=== PATIENT | female | born 1995 | race African-American/Black ===

== ENCOUNTER 2017-03-01 11:37 | Emergency (ER) | payer BC ==
[~2017-03-01] VITALS: Ht 154.9 cm; Wt 57.8 kg
[2017-03-01 11:44] VITALS: TEMP 36.7; Ht 154.9 cm; Wt 57.8 kg
[2017-03-01] MEDS ORDERED: DiphenhydrAMINE HCL 50 MG/ML VIAL IV STA (12:14)
[2017-03-01] MEDS ORDERED: SODIUM CHLORIDE 0.9% 1000ML 1,000 ML IV STA (12:14)
[2017-03-01] MEDS ORDERED: PROCHLORPERAZINE 5 MG/ML 2 ML VIAL IV STA (12:14)
[2017-03-01] MEDS ORDERED: KETOROLAC TROMETHAMINE 30 MG/ML VIAL IV STA (12:14)
[2017-03-01 12:49] LABS: BASO % 0.3 %; BASO ABS # 0.02 K/uL (0-0.2); COMPLETE YES; EOS % 1.4 %; HEMATOCRIT 41.2 % (37-47); IG% 0.2 %; LYMPH % 34.7 %; LYMPH ABS # 2.31 K/uL (1.2-3.4); MEAN CELL VOLUME 90.7 fL (80-100); MEAN PLATELET VOLUME 11.3 fL (7.4-10.4); MONO % 5.7 %; NEUT % 57.7 %; PLATELET COUNT 219 K/uL (130-400); RED BLOOD COUNT 4.54 M/uL (4.2-5.4); WHITE BLOOD COUNT 6.66 K/uL (4.8-10.8)
[2017-03-01 13:05] LABS: BUN/CREATININE RATIO 8.5 (10-20); CALCIUM 9.2 mg/dl (8.5-10.1); CREATININE 0.85 mg/dl (0.60-1.20); POTASSIUM 3.2 mmol/L (3.5-5.1)
--- NOTE | 2017-03-01 13:05 | EMERGENCY ROOM VISIT NOTE ---
History Report prepared by Karen: Pritesh Garner Under the Supervision of: Dr. Gerardo Disla M.D. First contact with patient: 12:10 Chief Complaint: HEADACHE Stated Complaint: DIZZY, MENENDEZ, WEAK, DRY MOUTH History of Present Illness The patient is a 21 year old female who presents to the Emergency Room with complaints of a constant headache in the right posterior area for the past 12 hours. She currently rates her discomfort as an 8/10 in severity. The patient additionally states that she is dizzy which is worse when she walks, and she has diarrhea, nausea, and tingling in her hands. The patient additionally notes that the light bothers her eyes. She denies any recent trauma, vomiting, abdominal pain, or chance for . The patient states that she has a history of migraines about once per month, and she has been in the hospital for them in the past. She states that she usually takes Excedrin for the headaches. Source of History: patient Onset: 12 hours ago Position: head Symptom Intensity: 8/10 Timing: constant Associated Symptoms: + nausea, + diarrhea Note: Associated symptoms: tingling in her hands Review of Systems See HPI for pertinent positives & negatives. A total of 10 systems reviewed and were otherwise negative. Past Medical & Surgical Medical Problems: (1) No pertinent past medical history Surgical Problems: (1) No pertinent past surgical history Family History No pertinent family history Social History Smoking Status: Never Smoker Alcohol Use: none Marital Status: single Occupation Status: [employer] student Current/Historical Medications No Active Prescriptions or Reported Meds Allergies Coded Allergies: No Known Allergies (Unverified , 05/14/16) Physical Exam Vital Signs Date Time Temp Pulse Resp B/P (MAP) Pulse Ox O2 Delivery O2 Flow Rate FiO2 03/01/17 15:05 74 18 122/76 100 03/01/17 14:32 69 14 123/76 100 03/01/17 12:35 72 20 135/74 100 Room Air 03/01/17 11:44 36.7 88 18 117/83 98 Room Air Physical Exam GENERAL: Patient is in no acute distress. HEENT: No acute trauma, normocephalic atraumatic, mucous membranes moist, no nasal congestion, no scleral icterus. Pupils equal and reactive to light. NECK: No stridor, no adenopathy, no meningismus, trachea is midline. LUNGS: Clear to auscultation bilaterally, no wheeze, no rhonchi, breath sounds equal. HEART: Without murmurs gallops or rubs, regular rate and rhythm. ABDOMEN: Soft, nontender, bowel sounds positive, no hernias, no peritonitis. EXTREMITIES: No cyanosis or edema, full range of motion of all the joints without pain or difficulty, no signs for acute trauma. NEUROLOGIC: Oriented x 3, no acute motor or sensory deficits, no focal weakness. No cerebellar deficits. SKIN: No rash, no jaundice, no diaphoresis Medical Decision & Procedures Laboratory Results 03/01/17 12:30 Red Blood Count 4.54, Mean Corpuscular Volume 90.7, Mean Corpuscular Hemoglobin 30.0, Mean Corpuscular Hemoglobin Concent 33.0, Mean Platelet Volume 11.3, Neutrophils (%) (Auto) 57.7, Lymphocytes (%) (Auto) 34.7, Monocytes (%) (Auto) 5.7, Eosinophils (%) (Auto) 1.4, Basophils (%) (Auto) 0.3, Neutrophils # (Auto) 3.85, Lymphocytes # (Auto) 2.31, Monocytes # (Auto) 0.38, Eosinophils # (Auto) 0.09, Basophils # (Auto) 0.02 03/01/17 12:30 Test 03/01/17 12:30 03/01/17 14:28 White Blood Count 6.66 K/uL (4.8-10.8) Red Blood Count 4.54 M/uL (4.2-5.4) Hemoglobin 13.6 g/dL (12.0-16.0) Hematocrit 41.2 % (37-47) Mean Corpuscular Volume 90.7 fL (80-100) Mean Corpuscular Hemoglobin 30.0 pg (25-34) Mean Corpuscular Hemoglobin Concent 33.0 g/dl (32-36) Platelet Count 219 K/uL (130-400) Mean Platelet Volume 11.3 fL (7.4-10.4) Neutrophils (%) (Auto) 57.7 % Lymphocytes (%) (Auto) 34.7 % Monocytes (%) (Auto) 5.7 % Eosinophils (%) (Auto) 1.4 % Basophils (%) (Auto) 0.3 % Neutrophils # (Auto) 3.85 K/uL (1.4-6.5) Lymphocytes # (Auto) 2.31 K/uL (1.2-3.4) Monocytes # (Auto) 0.38 K/uL (0.11-0.59) Eosinophils # (Auto) 0.09 K/uL (0-0.5) Basophils # (Auto) 0.02 K/uL (0-0.2) RDW Standard Deviation 42.2 fL (36.4-46.3) RDW Coefficient of Variation 12.7 % (11.5-14.5) Immature Granulocyte % (Auto) 0.2 % Immature Granulocyte # (Auto) 0.01 K/uL (0.00-0.02) Anion Gap 9.0 mmol/L (3-11) Est Creatinine Clear Calc Drug Dose 85.6 ml/min Estimated GFR () 113.5 Estimated GFR (Non- 97.9 BUN/Creatinine Ratio 8.5 (10-20) Calcium Level 9.2 mg/dl (8.5-10.1) Human Chorionic Gonadotropin, Qual NEG (NEG) Urine Color YELLOW Urine Appearance CLEAR (CLEAR) Urine pH 7.0 (4.5-7.5) Urine Specific [place] 1.006 (1.000-1.030) Urine Protein NEG (NEG) Urine Glucose (UA) NEG (NEG) Urine Ketones NEG (NEG) Urine Occult Blood NEG (NEG) Urine Nitrite NEG (NEG) Urine Bilirubin NEG (NEG) Urine Urobilinogen NEG (NEG) Urine Leukocyte Esterase SMALL (NEG) Urine WBC (Auto) 5-10 /hpf (0-5) Urine RBC (Auto) 0-4 /hpf (0-4) Urine Hyaline Casts (Auto) 0 /lpf (0-5) Urine Epithelial Cells (Auto) >30 /lpf (0-5) Urine Bacteria (Auto) 1+ (NEG) Laboratory results reviewed by me. Medications Administered Medications (Trade) Dose Ordered Sig/[place] Route Start Time Stop Time Status Last Admin Dose Admin Prochlorperazine Edisylate (Compazine Inj) 10 mg NOW STAT IV 03/01/17 12:14 03/01/17 12:17 DC 03/01/17 12:41 10 MG Sodium Chloride 1,000 ml @ 999 mls/hr Q1H1M STAT IV 03/01/17 12:14 03/01/17 13:14 DC 03/01/17 12:36 999 MLS/HR Ketorolac Tromethamine (Toradol Inj) 30 mg NOW STAT IV 03/01/17 12:14 03/01/17 12:17 DC 03/01/17 12:41 30 MG Diphenhydramine HCl (Benadryl Inj) 50 mg NOW STAT IV 03/01/17 12:14 03/01/17 12:17 DC 03/01/17 12:36 50 MG ED Course 1210: The patient was evaluated in room A12. A complete history and physical exam was performed. 1214: Benadryl Inj 50mg IV, Toradol Inj 30mg IV, Sodium Chloride 1000 ml @ 999 mls/hr IV, Compazine Inj 10mg IV 1442: Reevaluated the patient, and she was feeling better. Discussed results and discharge instructions: She verbalized understanding and agreement. The patient is ready for discharge. Medical Decision Differential Diagnoses include: Viral illness, dehydration, migraine headache, electrolyte imbalance, UTI, meningitis, and intracranial bleed. There is no leukocytosis or concerning anemia. No significant electrolyte abnormality or kidney failure. testing is negative. Urinalysis shows contamination, no infection. On exam, the patient was not toxic or febrile. There is no meningismus. She had a normal neurologic evaluation. Patient received IV saline, IV Benadryl, IV Compazine and IV Toradol. She feels markedly improved. The patient is a history of migraines and this headache certainly sounds migrainous. She is doing well, she is being discharged, if worsening, she can return. Medication Reconcilliation Current Medication List: was personally reviewed by me Blood Pressure Screening Patient's blood pressure: Normal blood pressure Impression Primary Impression: Headache Additional Impression: Diarrhea Scribe Attestation The scribe's documentation has been prepared under my direction and personally reviewed by me in its entirety. I confirm that the note above accurately reflects all work, treatment, procedures, and medical decision making performed by me. Departure Information Dispostion Home / Self-Care Prescriptions No Active Prescriptions or Reported Meds Referrals No Doctor, Assigned (PCP) Forms HOME CARE DOCUMENTATION FORM, IMPORTANT VISIT INFORMATION, School Instructions, Work Instructions Patient Instructions My [facility] Additional Instructions rest fluids return if worsening lab testing was all ok today Problem Qualifiers
[2017-03-01 13:17] LABS: PREG INTERNAL NEGATIVE QC NEG CLEAR BACKGROUND; PREG INTERNAL POSITIVE QC POS CONTROL LINE
[2017-03-01 14:49] LABS: MANUAL MICROSCOPIC REQUIRED? NO; REVIEW REQ? YES; URINE APPEARANCE CLEAR (CLEAR); URINE BILIRUBIN NEG (NEG); URINE COLOR YELLOW; URINE NITRITE NEG (NEG); URINE SPECIFIC GRAVITY 1.006 (1.000-1.030); UROBILINOGEN NEG (NEG); ZZUR CULT IF INDIC CLEAN CATCH YES
[2017-03-01 15:01] LABS: URINE EPITHELIAL CELL AUTO >30 /lpf (0-5)
[2017-03-01 15:05] VITALS: BP 122/76; PULSE 74; O2SAT 100
== END 2017-03-01 15:08 | disposition home or self-care (01) ==
LOC: C.EDB 11:39 → C.EDA 15:08
DX: R51 Headache (principal); R19.7 Diarrhea, unspecified